=== PATIENT | male | born 1990 | race Caucasian/White ===

== ENCOUNTER 2025-05-26 18:22 | Emergency (ER) | payer MEDICAID ==
[~2025-05-26] VITALS: Ht 182.9 cm; Wt 98.9 kg
[2025-05-26] MEDS: IV NS 0.9% 1,000 ML BAG IV ONE (19:20)
[2025-05-26 19:41] LABS: PLATELET COUNT (AUTO) 287 K/uL (150-450); RED BLOOD CELL COUNT(AUTO) 5.49 MIL/uL (4.5-6.0); RED CELL DISTRIBUTION WIDTH 13.5 % (11.5-15.0); WHITE BLOOD COUNT (AUTO) 8.3 K/uL (4.3-11.0)
[2025-05-26 19:48] LABS: CALCIUM, SERUM 9.5 mg/dL (8.5-10.1); CREATININE 1.0 mg/dL (0.6-1.3); SODIUM SERUM 143.0 mmol/L (136-145); UREA NITROGEN, BLOOD 10.0 mg/dL (7-18)
[2025-05-26] MEDS ORDERED: POTASSIUM CHLORIDE 20 MEQ TAB.PRT.SR PO ONE (20:10)
[2025-05-26] MEDS: POTASSIUM CHLORIDE 20 MEQ TAB.PRT.SR PO ONE (20:18)
[2025-05-26 20:27] VITALS: BP 130/89; TEMP 98; O2SAT 100
== END 2025-05-26 20:27 | disposition home or self-care (01) ==
LOC: ER 18:30
DX: R55 Syncope and collapse (principal); R42 Dizziness and giddiness; F41.0 Panic disorder [episodic paroxysmal anxiety]
CPT/HCPCS: 99284; 96360; 93005; 85025; 80048; 83735; 36415; 84484; J7030